=== PATIENT | female | born 1990 | race Caucasian/White ===

== ENCOUNTER 2016-06-28 18:22 | Inpatient (IN) | payer OTHER ==
[~2016-06-28] VITALS: Ht 170.2 cm; Wt 77.3 kg
[2016-06-28 18:37] VITALS: BP 123/86
[2016-06-28] MEDS ORDERED: PREN-13 PO (18:54)
[2016-06-28 20:07] LABS: AMNI OBC PASS; AMNISURE POSITIVE (NEGATIVE)
[2016-06-28] MEDS ORDERED: OXYTOCIN 30U/ 0.9% NaCL 500ML 500 ML IV ONE (20:11)
[2016-06-28] MEDS ORDERED: FENTANYL PF 100 MCG/2ML IV PRN (20:30)
[2016-06-28] MEDS ORDERED: ONDANSETRON 2MG/ML, 2ML IVPush PRN (20:30)
[2016-06-28] MEDS: LACTATED RINGERS 1,000 ML IV SCH (20:32)
[2016-06-28] MEDS ORDERED: OXYTOCIN 30U/ 0.9% NaCL 500ML 500 ML ONE (20:34)
[2016-06-28] MEDS ORDERED: NEWBORN KIT ONE (20:34)
[2016-06-28] MEDS ORDERED: OXYTOCIN 30U/ 0.9% NaCL 500ML 500 ML IV PRN (22:01)
[2016-06-28] MEDS ORDERED: FENTANYL PF 100 MCG/2ML ONE (23:49)
[2016-06-28] MEDS: FENTANYL PF 100 MCG/2ML IVPush PRN (23:51)
[2016-06-29] MEDS ORDERED: FENTANYL PF 100 MCG/2ML ONE (00:55)
[2016-06-29] MEDS: FENTANYL PF 100 MCG/2ML IVPush PRN ×2 (00:59→15:08)
[2016-06-29] MEDS: LACTATED RINGERS 1,000 ML IV SCH ×6 (01:14→20:11)
[2016-06-29] MEDS ORDERED: LIDOCAINE/PF 1.5%-EPI 1:200K, 30ML ONE (01:40)
[2016-06-29] MEDS ORDERED: FENTANYL/BUPIV./NS/PF 250 ML EPIDCONT ONE (01:40)
[2016-06-29] MEDS: FENTANYL/BUPIV./NS/PF 250 ML EPIDCONT SCH ×2 (02:06→22:56)
[2016-06-29] MEDS ORDERED: LACTATED RINGERS 1,000 ML IVBOLUS PRN (02:30)
[2016-06-29] MEDS ORDERED: CALCIUM CARBONATE 500 MG TAB.CHEW ONE (03:33)
[2016-06-29] MEDS ORDERED: TERBUTALINE 1 MG/ML, 1ML ONE (03:49)
[2016-06-29] MEDS ORDERED: CALCIUM CARBONATE 500 MG TAB.CHEW PO PRN (04:00)
[2016-06-29] MEDS ORDERED: TERBUTALINE 1 MG/ML, 1ML IVPush PRN (04:30)
[2016-06-29] MEDS: OXYTOCIN 30U/ 0.9% NaCL 500ML 500 ML IV SCH ×2 (08:37→18:37)
[2016-06-29] MEDS ORDERED: OXYcodone/APAP 5/325MG TABLET PO PRN ×2 (09:00)
[2016-06-29] MEDS: RHOGAM FROM BLOOD BANK 1 NOTE EA IM/IV ONE (09:00)
[2016-06-29] MEDS ORDERED: BISACODYL 10 MG SUPP PR PRN (09:00)
[2016-06-29] MEDS ORDERED: MISOPROSTOL 200 MCG TABLET PR PRN (09:00)
[2016-06-29] MEDS ORDERED: DIPH,PERTUSS(ACELL),TET VAC/PF NC IM-VACC PRN (09:00)
[2016-06-29] MEDS ORDERED: DOCUSATE 100 MG CAPSULE PO PRN (09:00)
[2016-06-29] MEDS ORDERED: CARBOPROST TROMETHAMINE 250 MCG/ML, 1ML IM PRN (09:00)
[2016-06-29] MEDS ORDERED: PRENATAL VIT/IRON/FA 1 EACH TABLET PO SCH (09:00)
[2016-06-29] MEDS ORDERED: ACETAMINOPHEN 325 MG TABLET PO PRN (09:00)
[2016-06-29] MEDS ORDERED: IBUPROFEN 600 MG TABLET ONE (09:27)
[2016-06-29] MEDS: IBUPROFEN 600 MG TABLET PO PRN ×2 (09:32→16:31)
[2016-06-29 12:42] VITALS: BP 120/79
[2016-06-29 16:36] VITALS: BP 107/73
[2016-06-29 21:00] VITALS: BP 113/65
[2016-06-30 01:00] VITALS: BP 121/80
[2016-06-30] MEDS: IBUPROFEN 600 MG TABLET PO PRN ×2 (02:42→08:29)
[2016-06-30 05:00] VITALS: BP 118/78
[2016-06-30 07:00] VITALS: BP 114/65
== END 2016-06-30 14:50 | disposition home or self-care (01) | DRG 775 ==
LOC: LDOP 18:22 → LDIP 20:16 → 2NW 06-29 12:15
PROVIDERS: ADMIT Obstetrics & Gynecology Maternal & Fetal Medicine; ATTEND Obstetrics & Gynecology Maternal & Fetal Medicine
PROC: 10E0XZZ Delivery of Products of Conception, External Approach (ICD-10-PCS; principal; 2016-06-28)
PROC: 0UQMXZZ Repair Vulva, External Approach (ICD-10-PCS; 2016-06-28)
PROC: 00HU33Z Insertion of Infusion Device into Spinal Canal, Percutaneous Approach (ICD-10-PCS; 2016-06-28)
PROC: 3E0R3CZ (ICD-10-PCS; 2016-06-28)
PROC: 3E033VJ Introduction of Other Hormone into Peripheral Vein, Percutaneous Approach (ICD-10-PCS; 2016-06-28)
DX: O71.82 Other specified trauma to perineum and vulva (principal); Z37.0 Single live birth; Z88.2 Allergy status to sulfonamides; Z3A.39 39 weeks gestation of pregnancy
CPT/HCPCS: 36415; 84112; 85025; 86850; 86900; 89060; 90715; J3010; J2590; J3105; J7120; Q0114

== ENCOUNTER 2017-09-14 03:31 | Inpatient (IN) | payer OTHER ==
[~2017-09-14] VITALS: Ht 170.2 cm; Wt 75.0 kg
[~2017-09-14 03:31] MED LIST: PREN-13 PO
[2017-09-14] MEDS ORDERED: LACTATED RINGERS 1,000 ML IV SCH ×2 (03:48→06:23)
[2017-09-14] MEDS ORDERED: OXYTOCIN 30U/ 0.9% NaCL 500ML 500 ML IV ONE (03:48)
[2017-09-14] MEDS ORDERED: D5%-LACTATED RINGERS 1,000 ML IV SCH (03:48)
[2017-09-14] MEDS ORDERED: FENTANYL PF 100 MCG/2ML IV PRN (04:00)
[2017-09-14] MEDS ORDERED: FENTANYL PF 100 MCG/2ML IVPush PRN (04:00)
[2017-09-14] MEDS ORDERED: ONDANSETRON 2MG/ML, 2ML IVPush PRN ×2 (04:00→06:30)
[2017-09-14] MEDS ORDERED: CALCIUM CARBONATE 500 MG TAB.CHEW PO PRN (04:00)
[2017-09-14] MEDS ORDERED: FENTANYL PF 100 MCG/2ML ONE (04:13)
[2017-09-14 04:25] LABS: BASOPHILS # (AUTO) 0.03 x10^3/uL (0-0.1); BASOPHILS % (AUTO) 0 % (0-1); EOSINOPHILS # (AUTO) 0.02 x10^3/uL (0-0.4); EOSINOPHILS % (AUTO) 0 % (1-7); LYMPHOCYTES # (AUTO) 1.83 x10^3/uL (1-3.4); LYMPHOCYTES % (AUTO) 24 % (22-44); MD NO; MEAN CORPUSCULAR HEMOGLOBIN 27.6 pg (27.0-34.8); MEAN CORPUSCULAR HGB CONC 33.2 g/dL (32.4-35.8); MEAN CORPUSCULAR VOLUME 83.1 fL (80-100); MEAN PLATELET VOLUME 11.7 fL (7.4-10.4); MONOCYTES # (AUTO) 0.44 x10^3/uL (0.2-0.8); MONOCYTES % (AUTO) 6 % (2-9); NEUTROPHILS # (AUTO) 5.42 x10^3/uL (1.8-6.8); NEUTROPHILS % (AUTO) 70 % (42-75); PLATELET COUNT 143 x10^3/uL (130-400); RED BLOOD COUNT 4.39 x10^6/uL (3.82-5.3); RED CELL DISTRIBUTION WIDTH 13.9 % (9.6-15.2)
[2017-09-14] MEDS ORDERED: NEWBORN KIT ONE (05:03)
[2017-09-14] MEDS ORDERED: MISOPROSTOL 200 MCG TABLET ONE (05:04)
[2017-09-14] MEDS ORDERED: OXYTOCIN 30U/ 0.9% NaCL 500ML 500 ML ONE (05:04)
[2017-09-14] MEDS ORDERED: LIDOCAINE/PF 1%, 30ML ONE (05:04)
[2017-09-14] MEDS ORDERED: BUPIVACAINE 0.25% ONE (05:06)
[2017-09-14] MEDS ORDERED: FENTANYL/BUPIV./NS/PF 250 ML EPIDCONT ONE (05:06)
[2017-09-14] MEDS ORDERED: FENTANYL/BUPIV./NS/PF 250 ML EPIDCONT SCH (06:23)
[2017-09-14] MEDS ORDERED: EPHEDRINE 50 MG/ML, 1ML IVPush PRN (06:30)
[2017-09-14] MEDS ORDERED: NALOXONE 0.4 MG/ML, 1ML IVPush PRN (06:30)
[2017-09-14] MEDS ORDERED: DIPHENHYDRAMINE 50 MG/ML, 1ML IVPush PRN (06:30)
[2017-09-14] MEDS ORDERED: LACTATED RINGERS 1,000 ML IVBOLUS PRN (06:30)
[2017-09-14] MEDS: OXYTOCIN 30U/ 0.9% NaCL 500ML 500 ML IV SCH ×2 (07:49→17:49)
[2017-09-14] MEDS ORDERED: MISOPROSTOL 200 MCG TABLET PR PRN (08:00)
[2017-09-14] MEDS ORDERED: MEASLES,MUMPS&RUBELLA VACC/PF 0.5 ML SQ-VACC PRN (08:00)
[2017-09-14] MEDS ORDERED: DOCUSATE 100 MG CAPSULE PO PRN (08:00)
[2017-09-14] MEDS ORDERED: OXYcodone/APAP 5/325MG TABLET PO PRN (08:00)
[2017-09-14] MEDS ORDERED: CARBOPROST TROMETHAMINE 250 MCG/ML, 1ML IM PRN (08:00)
[2017-09-14] MEDS ORDERED: ACETAMINOPHEN 325 MG TABLET PO PRN (08:00)
[2017-09-14] MEDS ORDERED: DIPH,PERTUSS(ACELL),TET VAC/PF NC IM-VACC PRN (08:00)
[2017-09-14] MEDS: PRENATAL VIT/IRON/FA 1 EACH TABLET PO SCH (09:00)
[2017-09-14 09:55] VITALS: BP 114/78
[2017-09-14 11:55] VITALS: BP 111/77
[2017-09-14] MEDS: IBUPROFEN 600 MG TABLET PO PRN ×2 (14:42→21:27)
[2017-09-14 15:57] VITALS: BP 120/86
[2017-09-14 16:19] LABS: BASOPHILS # (AUTO) 0.03 x10^3/uL (0-0.1); BASOPHILS % (AUTO) 0 % (0-1); EOSINOPHILS # (AUTO) 0.01 x10^3/uL (0-0.4); EOSINOPHILS % (AUTO) 0 % (1-7); LYMPHOCYTES # (AUTO) 1.38 x10^3/uL (1-3.4); LYMPHOCYTES % (AUTO) 16 % (22-44); MEAN CORPUSCULAR HEMOGLOBIN 27.8 pg (27.0-34.8); MEAN CORPUSCULAR HGB CONC 33.3 g/dL (32.4-35.8); MEAN CORPUSCULAR VOLUME 83.4 fL (80-100); MEAN PLATELET VOLUME 11.9 fL (7.4-10.4); MONOCYTES # (AUTO) 0.57 x10^3/uL (0.2-0.8); MONOCYTES % (AUTO) 7 % (2-9); NEUTROPHILS % (AUTO) 77 % (42-75); PLATELET COUNT 141 x10^3/uL (130-400); RED BLOOD COUNT 4.18 x10^6/uL (3.82-5.3); RED CELL DISTRIBUTION WIDTH 14.2 % (9.6-15.2)
[2017-09-14 16:21] LABS: MD SCAN
[2017-09-14 21:00] VITALS: BP 113/77
[2017-09-14] MEDS: OXYcodone/APAP 5/325MG TABLET PO PRN (21:27)
[2017-09-15 00:35] VITALS: BP 107/69
[2017-09-15] MEDS: OXYcodone/APAP 5/325MG TABLET PO PRN ×2 (01:44→05:45)
[2017-09-15] MEDS: OXYTOCIN 30U/ 0.9% NaCL 500ML 500 ML IV SCH (03:49)
[2017-09-15 04:50] VITALS: BP 114/77
[2017-09-15] MEDS: IBUPROFEN 600 MG TABLET PO PRN (05:05)
[2017-09-15 07:49] VITALS: BP 104/71
[2017-09-15] MEDS: PRENATAL VIT/IRON/FA 1 EACH TABLET PO SCH (09:00)
== END 2017-09-15 14:26 | disposition home or self-care (01) | DRG 775 ==
LOC: LDOP 03:31 → LDIP 03:48 → 2NW 09:45
PROVIDERS: ADMIT Obstetrics & Gynecology Maternal & Fetal Medicine; ATTEND Obstetrics & Gynecology Maternal & Fetal Medicine
PROC: 10E0XZZ Delivery of Products of Conception, External Approach (ICD-10-PCS; principal; 2017-09-14)
PROC: 3E0R3BZ Introduction of Anesthetic Agent into Spinal Canal, Percutaneous Approach (ICD-10-PCS; 2017-09-14)
PROC: 00HU33Z Insertion of Infusion Device into Spinal Canal, Percutaneous Approach (ICD-10-PCS; 2017-09-14)
DX: O80 Encounter for full-term uncomplicated delivery (principal); Z37.0 Single live birth; Z3A.39 39 weeks gestation of pregnancy
CPT/HCPCS: 36415; 85025; 86850; 86900; 90715; J3010; J2590; J7120